=== PATIENT | male | born 1995 | race Hispanic/Latino ===

== ENCOUNTER 2018-09-11 16:25 | Emergency (ER) | payer MEDICAID, OTHER ==
[2018-09-11] MEDS ORDERED: MECLIZINE HCL 25 MG TABLET ONE (16:37)
== END 2018-09-11 17:46 | disposition home or self-care (01) ==
LOC: EDH 16:25
DX: H81.399 Other peripheral vertigo, unspecified ear (principal); H65.92 Unspecified nonsuppurative otitis media, left ear; Z72.0 Tobacco use; Z88.0 Allergy status to penicillin; Z88.6 Allergy status to analgesic agent; Z90.49 Acquired absence of other specified parts of digestive tract